=== PATIENT | female | born 1995 | race African-American/Black ===

== ENCOUNTER 2022-05-06 16:31 | Inpatient (IN) | payer OTHER, SELFPAY ==
[2022-05-06] MEDS ORDERED: CLINDAMYCIN 600MG/D5W 600 MG/50 ML BAG IV ONE (18:04)
[2022-05-06] MEDS ORDERED: NA CHLORIDE 0.9% 1,000 ML ONE (18:04)
[2022-05-06] MEDS ORDERED: dexAMETHasone 10 MG/ML VIAL ONE (18:04)
[2022-05-06] MEDS ORDERED: FENTANYL CITR 100 MCG/2 ML ONE (18:04)
[2022-05-06 18:06] LABS: Absolute Lymphocytes (CBC) 1.3 K/uL (0.7-4.9); Hematocrit 38.9 % (36.0-45.0); Lymphocytes % 5.7 % (15.3-44.8); MCV 83.7 fL (80-100); MPV 8.5 fL (7.6-11.3); RBC Red Blood Cell Count 4.65 M/uL (3.86-4.86)
[2022-05-06 18:13] LABS: Potassium 3.2 mmol/L (3.5-5.1)
--- NOTE | 2022-05-06 19:29 | RAD REPORT ---
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 FINDINGS: The right palatine tonsils edematous and enlarged. There is an 18 x 16 mm peritonsillar abscess on th e right present. Multiple enlarged jugular digastric lymph nodes are present bilaterally on the right the largest measuring 18 mm on the left the largest measuring 18-19 mm. Posterior triangle as well a s supraclavicular nodes are also present. Salivary glands are symmetric. No prevertebral fluid collections evident. IMPRESSION: 18 mm right peritonsillar abscess.
[2022-05-06] MEDS ORDERED: HYDROCOD 2.5mg-ACETAMIN 108mg/5mL Soln PO PRN (20:06)
--- NOTE | 2022-05-06 20:15 | EDPHYS ---
Physician Documentation [facility] Name: Di Shelby Age: 26 yrs Sex: Female : 1995 Arrival Date: 05/06/2022 Time: 16:46 Bed 4 Private MD: ED Physician Shawn Zuniga HPI: 05/06 17:19 This 26 yrs old Black Female presents to ER via Ambulatory with complaints of Sore snw Throat. 17:19 The patient presents with sore throat. The patient describes throat pain as snw suffocating, the patient is unable to open their mouth due to pain. Onset: The symptoms/episode began/occurred acutely, 2 week(s) ago, and became persistent. Severity of symptoms: At their worst the symptoms were moderate. Associated signs and symptoms: Pertinent positives: dysphagia, fever, flu-like symptoms, Sore throat. The patient has not experienced similar symptoms in the past. It is unknown whether or not the patient has recently seen a physician. 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 Historical: - Allergies: 17:13 No Known Allergies; [facility] - Immunization history:: Adult Immunizations up to date. - Social history:: Smoking status: Patient denies any tobacco usage or history of. ROS: 17:18 Constitutional: Negative for fever, chills, and weight loss, Eyes: Negative for injury, snw pain, redness, and discharge, Neck: Negative for injury, pain, and swelling, Cardiovascular: Negative for chest pain, palpitations, and edema, Respiratory: Negative for shortness of breath, cough, wheezing, and pleuritic chest pain, Abdomen/GI: Negative for abdominal pain, nausea, vomiting, diarrhea, and constipation, Back: Negative for injury and pain, : Negative for injury, bleeding, discharge, and swelling, MS/Extremity: Negative for injury and deformity, Skin: Negative for injury, rash, and discoloration, Neuro: Negative for headache, weakness, numbness, tingling, and seizure, Psych: Negative for depression, anxiety, suicide ideation, homicidal ideation, and hallucinations. 17:18 ENT: Positive for sore throat, diff swallowing x 2 weeks. Exam: 17:17 Constitutional: This is a well developed, well nourished patient who is awake, alert, snw and in no acute distress. Head/Face: Normocephalic, atraumatic. Eyes: Pupils equal round and reactive to light, extra-ocular motions intact. Lids and lashes normal. Conjunctiva and sclera are non-icteric and not injected. Cornea within normal limits. Periorbital areas with no swelling, redness, or edema. Neck: Trachea midline, no thyromegaly or masses palpated, and no cervical lymphadenopathy. Supple, full range of motion without nuchal rigidity, or vertebral point tenderness. No Meningismus. Chest/axilla: Normal chest wall appearance and motion. Nontender with no deformity. No lesions are appreciated. Respiratory: Lungs have equal breath sounds bilaterally, clear to auscultation and percussion. No rales, rhonchi or wheezes noted. No increased work of breathing, no retractions or nasal flaring. Abdomen/GI: Soft, non-tender, with normal bowel sounds. No distension or tympany. No guarding or rebound. No evidence of tenderness throughout. Back: No spinal tenderness. No costovertebral tenderness. Full range of motion. Skin: Warm, dry with normal turgor. Normal color with no rashes, no lesions, and no evidence of cellulitis. MS/ Extremity: Pulses equal, no cyanosis. Neurovascular intact. Full, normal range of motion. Neuro: Awake and alert, GCS 15, oriented to person, place, time, and situation. Cranial nerves II-XII grossly intact. Motor strength 5/5 in all extremities. Sensory grossly intact. Cerebellar exam normal. Normal gait. Psych: Awake, alert, with orientation to person, place and time. Behavior, mood, and affect are within normal limits. 17:17 ENT: Nose: is normal, Mouth: is normal, Posterior pharynx: Tonsils: enlarged on the right, with erythema, mild trismus, hot potato speech. 17:17 Cardiovascular: Rate: tachycardic, Rhythm: regular. Vital Signs: 17:07 BP 134 / 80; Pulse 128; Resp 20; Temp 98.8; Pulse Ox 99% ; Weight 70.31 kg; Height 4 [facility] ft. 11 in. (149.86 cm); 18:39 Pulse 108; snw 17:07 Body Mass Index 31.31 (70.31 kg, 149.86 cm) [facility] MDM: 17:09 Patient medically screened. snw 19:40 Data reviewed: vital signs, nurses notes. Data interpreted: Pulse oximetry: on room air snw is 99 %. Interpretation: normal. Counseling: I had a detailed discussion with the patient and/or guardian regarding: the historical points, exam findings, and any diagnostic results supporting the discharge/admit diagnosis, lab results, radiology results. Physician consultation: Luisana Flores MD was called at 19:41, regarding consult, patient's condition, for I\T\D. 20:13 Physician consultation: Luisana Flores MD was contacted at 20:00, in the emergency department snw to see patient at 20:00, Would like to admit to hospital and I\T\D TRIBAL JUDGE in OR tomorrow. 05/06 17:14 Order name: CBC with Diff; Complete Time: 18:14 snw 05/06 17:14 Order name: Chem 7; Complete Time: 18:14 snw 05/06 17:14 Order name: Blood Culture Adult (2) snw 05/06 18:54 Order name: Add On-Lab snw 05/06 19:10 Order name: Test Serum, Qualitat; Complete Time: 19:19 EDMS 05/06 21:10 Order name: SARS RAPID ll3 05/06 17:16 Order name: CT Soft Tissue Neck W/contr; Complete Time: 19:32 snw 05/06 21:47 Order name: SARS-COV-2 Antigen Rapid EDMS Administered Medications: 18:14 Drug: NS 0.9% 1000 ml Route: IV; Rate: 1 bolus; Site: left antecubital; iw 18:14 Drug: Decadron - Dexamethasone 10 mg Route: IVP; Site: left antecubital; iw 18:14 Drug: Clindamycin 600 mg Route: IVPB; Infused Over: 30 mins; Site: left antecubital; iw 18:14 Drug: fentaNYL (PF) 25 mcg Route: IVP; Site: left antecubital; iw 20:25 Drug: Potassium Effervescent Tablet 50 mEq Route: PO; ll3 Disposition: 18:46 Co-signature as Attending Physician, Shawn OLVERA was immediately available onsite ms3 in the emergency department for consultation in the care of the patient. Disposition Summary: 05/06/22 20:15 Hospitalization Ordered Hospitalization Status: Observation snw Provider: Dart, Luisana snw Condition: Stable snw Problem: new snw Symptoms: are unchanged snw Bed/Room Type: Standard snw Location: [facility] ER HOLD(05/06/22 21:19) cg Room Assignment: ERHOLD-(05/06/22 21:19) cg Diagnosis - Peritonsillar abscess snw Forms: - Medication Reconciliation Form snw - SBAR form snw Signatures: Dispatcher [employer] EDMS Nadege Coates, DOCUMENT MANAGEMENT SPECIALIST-C DOCUMENT MANAGEMENT SPECIALIST-Csnw Yvette Merida, RN RN iw Alysa Skelton RN RN cg Shawn Zuniga DO DO ms3 Lizzy Paz RN RN jh5 Abbie Dyson RN RN ll3 Corrections: (The following items were deleted from the chart) : 20:15 Telemetry/MedSurg (observation) snw cg : 20:15 snw cg
--- NOTE | 2022-05-06 20:15 | ER ---
Nurse's Notes [facility] Name: Di Shelby Age: 26 yrs Sex: Female : 1995 Arrival Date: 05/06/2022 Time: 16:46 Bed 4 Private MD: Diagnosis: Peritonsillar abscess Presentation: 05/06 17:07 Chief complaint: Patient states: throat hurts and is swollen; hurts for anything to go jh5 down; i have to use a spit cup. it been like this 2 weeks. Coronavirus screen: Vaccine status: Patient reports receiving the 2nd dose of the covid vaccine. Client denies travel out of the [place] in the last 14 days. Ebola Screen: Patient negative for fever greater than or equal to 101.5 degrees Fahrenheit, and additional compatible Ebola Virus Disease symptoms Patient denies exposure to infectious person. Patient denies travel to an Ebola-affected area in the 21 days before illness onset. Initial Sepsis Screen: Does the patient meet any 2 criteria? No. Patient's initial sepsis screen is negative. Does the patient have a suspected source of infection? No. Patient's initial sepsis screen is negative. Risk Assessment: Do you want to hurt yourself or someone else? Patient reports no desire to harm self or others. 17:07 Method Of Arrival: Ambulatory [facility] 17:07 Acuity: KARIE 3 jh5 Triage Assessment: 17:13 General: Appears uncomfortable, Behavior is calm, cooperative. Pain: Complains of pain jh5 in throat. 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 Historical: - Allergies: 17:13 No Known Allergies; 5 - Immunization history:: Adult Immunizations up to date. - Social history:: Smoking status: Patient denies any tobacco usage or history of. Assessment: 19:05 Reassessment: Patient appears in no apparent distress at this time. Patient and/or iw family updated on plan of care and expected duration. Pain level reassessed. Patient is alert, oriented x 3, equal unlabored respirations, skin warm/dry/pink. Vital Signs: 17:07 BP 134 / 80; Pulse 128; Resp 20; Temp 98.8; Pulse Ox 99% ; Weight 70.31 kg; Height 4 jh5 ft. 11 in. (149.86 cm); 18:39 Pulse 108; snw 17:07 Body Mass Index 31.31 (70.31 kg, 149.86 cm) 5 ED Course: 16:46 Patient arrived in ED. cc5 16:46 Nadege Coates FNP-C [facility] snw 16:46 Shawn Zuniga DO is Attending Physician. snw 17:13 Triage completed. 5 17:13 Arm band placed on right wrist. 5 17:30 First set of blood cultures drawn by me. Missed attempt(s): 20 gauge in left iw antecubital area. Bleeding controlled, band aid applied, catheter tip intact. 17:49 Inserted saline lock: 22 gauge in left antecubital area, using aseptic technique. iw 18:14 Yvette Merida, RN is Primary Nurse. iw 18:56 Inserted saline lock: 22 gauge in right wrist, using aseptic technique. Blood collected. 19:13 CT Soft Tissue Neck W/contr In Process Unspecified. EDMS 20:14 Luisana Flores MD is Hospitalizing Provider. snw Administered Medications: 18:14 Drug: NS 0.9% 1000 ml Route: IV; Rate: 1 bolus; Site: left antecubital; iw 18:14 Drug: Decadron - Dexamethasone 10 mg Route: IVP; Site: left antecubital; iw 18:14 Drug: Clindamycin 600 mg Route: IVPB; Infused Over: 30 mins; Site: left antecubital; iw 18:14 Drug: fentaNYL (PF) 25 mcg Route: IVP; Site: left antecubital; iw 20:25 Drug: Potassium Effervescent Tablet 50 mEq Route: PO; ll3 Outcome: 20:15 Decision to Hospitalize by Provider. snw 12 11:27 Patient left the ED. vg1 Signatures: Dispatcher [employer] EDNY Nadege Coates FNP-C SECURITY SALES MANAGER-Csnw Yvette Merida, RN IVANIA Paula Ramey RN RN ss Garcia, Victoria, RN RN vg1 Lizzy Paz, IVANIA REDD 5 Abbie Dyson RN RN 3 Iveth Yee 5
[2022-05-06] MEDS ORDERED: POTASSIUM 25 MEQ EFFERV TAB ONE (20:18)
[2022-05-06] MEDS: D5 0.45 NS 1,000 ML IV SCH (21:00)
[2022-05-06] MEDS: METHYLPRED NA SUC 125 MG in NA CHLORIDE 0.9% 100 ML IV SCH (21:00)
[2022-05-06] MEDS ORDERED: D5 0.45 NS 1,000 ML IV ONE (21:01)
[2022-05-06] MEDS ORDERED: METHYLPREDNISOLONE 125 MG INJ ONE (21:01)
[2022-05-06] MEDS ORDERED: NA CHLORIDE 0.9% 100 ML IV ONE (21:09)
[2022-05-06 21:28] VITALS: BMI 31.3
[2022-05-06 21:46] LABS: SARS-CoV-2 Antigen Rapid Res Negative (Negative)
[2022-05-07] MEDS ORDERED: AMPICILLIN/SULBACT 1.5GM VIAL ONE ×2 (00:28→06:16)
[2022-05-07] MEDS ORDERED: NA CHLORIDE 0.9% 100 ML IV ONE ×4 (00:29→10:06)
[2022-05-07] MEDS: AMPICILLIN/SULBACT 1.5 GM in NA CHLORIDE 0.9% 100 ML IVPB SCH ×4 (00:38→12:02)
[2022-05-07] MEDS: METHYLPRED NA SUC 125 MG in NA CHLORIDE 0.9% 100 ML IV SCH ×2 (03:00→10:15)
[2022-05-07] MEDS ORDERED: METHYLPREDNISOLONE 125 MG INJ ONE ×2 (03:14→10:06)
[2022-05-07] MEDS: D5 0.45 NS 1,000 ML IV SCH (07:00)
[2022-05-07] MEDS ORDERED: D5 0.45 NS 1,000 ML IV ONE (07:24)
[2022-05-07] MEDS ORDERED: INFLUENZA VACCINE (for 6+ mo) 0.5 ML DOSE IMVAC ONE (08:00)
[2022-05-07] MEDS ORDERED: Ringers Lactate 1,000 ML IV ONE (11:29)
[2022-05-07] MEDS ORDERED: LIDOCAINE 1.5% W/EPI AMP 5 ML ONE (11:42)
[2022-05-07] MEDS ORDERED: MIDAZOLAM HCL 2 MG/2 ML INJ ONE (12:38)
[2022-05-07] MEDS ORDERED: propofoL 200 MG/20 ML VIAL IV ONE (12:38)
[2022-05-07] MEDS ORDERED: FENTANYL CITR 100 MCG/2 ML ONE (12:38)
[2022-05-07] MEDS ORDERED: LIDOCAINE 1% MPF 5 ML VIAL ONE (12:38)
[2022-05-07] MEDS ORDERED: ROCURONIUM 50 MG/5 ML VIAL IV ONE (12:39)
[2022-05-07] MEDS ORDERED: SUCCINYLCHOLINE 20 MG/ML (10 ML) IV ONE (12:41)
[2022-05-07] MEDS ORDERED: LIDOCAINE HCL JELLY 2% 6 ML SYRINGE TOP ONE (12:48)
[2022-05-07] MEDS ORDERED: KETOROLAC 30 MG/ML INJ ONE (13:09)
[2022-05-07] MEDS ORDERED: dexAMETHasone 10 MG/ML VIAL ONE (13:09)
[2022-05-07] MEDS ORDERED: ONDANSETRON 4 MG/2 ML VIAL ONE (13:18)
[2022-05-07 14:26] VITALS: TEMP 97.8; O2SAT 98
--- NOTE | 2022-05-07 14:37 | CON ---
Date of Consultation: 05/06/2022 Chief Complaint: Severe sore throat. History Of Present Illness: The patient is a pleasant 26-year-old black female, who presented to the emergency room via a private car with complaints of severe sore throat, which started approximately 2 weeks ago and became persistent. The patient developed odynophagia, dysphagia, muffled voice, and fever with flu-like symptoms. She did not take any antibiotics or present to her primary care physic ronnie for treatment. She presented to the emergency room for further evaluation and management. A CT scan of soft tissue neck with contrast was performed and it demonstrated a rather large right periton sillar abscess at least 1.5 cm in diameter. Thus, these were the indications to consult ENT. Upon a rrival to bedside, the patient is in no acute distress. Her voice is muffled and she still complains of [id number], 8/10 pain, but it is improved after receiving fentanyl. She denies vomiting, headache, otalgia, otorrhea, rhinorrhea, nasal congestion, shortness of breath, chest pain or airway obstruction. No other ENT complaints today. Past Medical History: Denies. Past Surgical History: Denies. Allergies: NO KNOWN DRUG ALLERGIES. Social History: The patient denies tobacco, alcohol, or illicit drugs. Review of Systems: Constitutional: Positive for fatigue and fever. Eyes: Negative for drainage or pain and redness. Ears: Negative for pain or drainage or hearing loss. Nose: Negative for rhinorrhea, nasal congestion, epistaxis. Oral Cavity: Positive for severe sore throat with swelling and odynophagia/dysphagia. Respiratory: Negative for shortness of breath, airway obstruction, cough, wheezing. Physical Examination: Vital Signs: Stable. General: The patient is awake, alert, oriented to person, place, time, and is in no acute distress. She is able to grieve adequately with her mouth closed. Head: Atraumatic, normocephalic. Eyes: PERRLA/EOMI. Ears: Deferred. Nose: Moist intranasal mucosa. Midline septum. No bleeding or rhinorrhea. Throat: The patient is able to open the mouth and I was able to insert 2 fingers. As there were 2 f ingerbreadths approximately 2 cm of opening, the patient had significant trismus and was unable to op en the mouth for more than 5 seconds without having significant pain. The patient has physiologic la rge base of tongue and examination of the oropharynx demonstrates a deviated uvula to the left due to right peritonsillar abscess. There is fluctuance palpated at the abscess pocket. Left tonsil appea rs to be normal size. Neck: Supple. Trachea midline. Laboratory Data: A CT scan of the soft tissue neck was reviewed and I agree with the radiologist's f indings that there was a large abscess located in the right peritonsillar area and significant mucosa l swelling surrounding the abscess cavity. White blood cell count is 22,000 with significant neutrophil count. Diagnosis: Acute right peritonsillar abscess. Recommendations: 1.The patient is declining bedside drainage and I agree that the patient is unable to open adequatel y and she has a large base of tongue, which would be a challenging obstacle during incision and drain age. 2.Recommend starting Zosyn, Solu-Medrol, p.r.n. Lortab or morphine for pain. 3.Recommend IV fluids if needed. The patient is able to tolerate liquids so she can have liquids, b ut n.p.o. after midnight. 4.We will take to the operating room for incision and drainage. Thanks for this most interesting consultation. ENIO/BETH Voice ID: [id number] Report ID: [id number]
[2022-05-07 15:16] VITALS: BP 118/64
--- NOTE | 2022-05-07 22:10 | OP ---
Date of Procedure: 05/07/2022 Surgeon: JANE TORRES Preoperative Diagnosis: Acute right peritonsillar abscess. Postoperative Diagnosis: Acute right peritonsillar abscess. Procedure: Incision and drainage of right peritonsillar abscess under general sedation. Anesthesia: General anesthesia was administered. Also infiltrated approximately 5 mL of 1.5% lidoca ine with 1:200,000 epinephrine into the right soft palate and anterior pillar. Specimens: None. Findings: Mucoid secretions suctioned from the abscess cavity after incising with needlepoint electr ocautery. Approximately 1 to 2 mL was suctioned. Complications: None. Disposition: Stable. The patient tolerated the procedure well. Indication For Procedure: Patient is a pleasant 26-year-old female who presented on May 06, with acute right tonsillar swelling and throat pain and inability to swallow secondary to peritons illar abscess. Patient was placed on antibiotics and Decadron and while she improved overnight, she still had evidence of abscess and this was confirmed on a CT scan of the soft tissue neck with contra st. These were indications to bring the patient to proceed for the above-mentioned procedure. She u nderstood. All questions were answered. Risks versus benefits and complications were explained in d etail and a consent form was signed which was placed in the chart. Description Of Procedure: Patient was transferred from the preoperative holding area to the operativ e suite by Department of Anesthesia, placed on the operating room table supine, sedated and intubated in normal fashion. Table was rotated 90 degrees and a head rest was placed. The patient was placed into reverse Trendelenburg. I inserted a McIvor retractor into the right oral commissure and direct ed along the endotracheal tube and suspended from the [facility]. Endotracheal tube was taped to the left oral commissure. Once suspended, I grasped the swollen right tonsil at the superior pole with a straight Allis clamp and I dissected through the mucosa down to the abscess cavity with needlepoint electrocautery on the 20 setting. There was evidence of mucoid secretions. This was suctioned with a suction Bovie. Hemostasis was achieved with suction Bovie. I used saline irrigation to rinse out the oral cavity. Once hemostasis was achieved, the patient was then de-suspended from [facility] an d the McIvor retractor was removed. Patient's jaw was checked and found to be in proper alignment. She was transferred back to Department of Anesthesia in stable condition where she was subsequently a wakened, extubated, and transferred to the postoperative care unit in stable condition. She will be discharged home on antibiotic and analgesic medication and will follow up in 1-2 weeks or sooner if n eeded. ENIO/BETH Voice ID: [id number] Report ID: [id number]
== END 2022-05-07 15:15 | disposition home or self-care (01) | DRG 145 ==
LOC: ER 16:31 → ERHOLD 20:42 → OBSVTOIN 05-07 09:46
PROVIDERS: ADMIT Otolaryngology Facial Plastic Surgery; ATTEND Otolaryngology Facial Plastic Surgery
PROC: 0C9PXZZ Drainage of Tonsils, External Approach (ICD-10-PCS; principal; 2022-05-07 12:00)
DX: J36 Peritonsillar abscess (principal); Z20.822 Contact with and (suspected) exposure to COVID-19
CPT/HCPCS: 36415; 70491; 80048; 84703; 85025; 87040; 87811; 96374; 96375; 99284; G0378; J0295; J0330; J1100; J2001; J2250; J2405; J2704; J2930; J3010; J7030; J7120; J7799; Q9967